=== PATIENT | male | born 1975 | race Two or more races ===

== ENCOUNTER 2017-02-18 19:10 | Emergency (ER) | payer OTHER ==
[~2017-02-18] VITALS: Ht 165.1 cm; Wt 81.6 kg
[2017-02-18] MEDS ORDERED: ASPIRIN 81 MG TABLET CHEW PO ONE (20:00)
[2017-02-18] MEDS ORDERED: ASPIRIN 81 MG TABLET CHEW ONE (20:00)
[2017-02-18] MEDS ORDERED: SODIUM CHLORIDE FLUSH 10ML SYR IVF ONE (20:00)
[2017-02-18 20:07] LABS: HEMATOCRIT 44.7 % (39.2-51.8); HEMOGLOBIN 15.3 g/dL (13.7-18.0)
[2017-02-18 20:15] LABS: ASPARTATE AMINO TRANSFERASE 13 U/L (15-37); BLOOD UREA NITROGEN 15 mg/dL (7-18)
[2017-02-18 20:20] LABS: IS PT STATUS REG ER OR PRE ER? YES
[2017-02-18 20:42] VITALS: BP 138/106
[2017-02-18] MEDS ORDERED: KETOROLAC 30 MG/1 ML IM ONE (21:00)
[2017-02-18] MEDS ORDERED: KETOROLAC 30 MG/1 ML ONE (21:04)
== END 2017-02-18 21:23 | disposition home or self-care (01) ==
LOC: ED 20:44
DX: R07.89 Other chest pain (principal); I10 Essential (primary) hypertension; Z87.891 Personal history of nicotine dependence
CPT/HCPCS: 36415; 71010; 80053; 84484; 85025; 93005; 96372; 99285; J1885